=== PATIENT | male | born 1985 | race Two or more races ===

== ENCOUNTER 2021-11-06 18:16 | Emergency (ER) | payer MEDICAID ==
[2021-11-06] MEDS ORDERED: MUPI2CRE17 EX (22:35)
[2021-11-06] MEDS ORDERED: IBUP800T26 PO (22:35)
[2021-11-06 22:40] VITALS: BP 147/84
== END 2021-11-06 22:55 | disposition home or self-care (01) ==
LOC: ER 18:16
DX: S51.812A Laceration without foreign body of left forearm, initial encounter (principal); W26.9XXA Contact with unspecified sharp object(s), initial encounter; Y93.89 Activity, other specified; Y92.89 Other specified places as the place of occurrence of the external cause; Y99.8 Other external cause status
CPT/HCPCS: 12001

== ENCOUNTER 2021-11-13 08:17 | Emergency (ER) | payer MEDICAID ==
[~2021-11-13] VITALS: Ht 175.3 cm; Wt 78.0 kg
[~2021-11-13 08:17] MED LIST: IBUP800T26 PO; MUPI2CRE17 EX
[2021-11-13 08:41] VITALS: BP 140/78
== END 2021-11-13 08:57 | disposition home or self-care (01) ==
LOC: ER 08:17
DX: S51.812D Laceration without foreign body of left forearm, subsequent encounter (principal); Z79.1 Long term (current) use of non-steroidal anti-inflammatories (NSAID); Z79.899 Other long term (current) drug therapy; W26.8XXD Contact with other sharp object(s), not elsewhere classified, subsequent encounter

== ENCOUNTER → 2022-02-22 | Emergency (ER) | payer MEDICAID | END | disposition left against medical advice (07) | LOC: ER 02:02 | DX: R51.9 Headache, unspecified (principal); Z53.21 Procedure and treatment not carried out due to patient leaving prior to being seen by health care provider ==

== ENCOUNTER 2022-03-19 21:01 | Emergency (ER) | payer MEDICAID | END 2022-03-19 21:59 | disposition left against medical advice (07) | LOC: ER 21:01 | DX: M79.674 Pain in right toe(s) (principal); Z53.21 Procedure and treatment not carried out due to patient leaving prior to being seen by health care provider ==